=== PATIENT | female | born 1980 | race Caucasian/White ===

== ENCOUNTER 2018-07-29 17:43 | Emergency (ER) | payer BC, SELFPAY ==
[2018-07-29 17:48] VITALS: BP 135/76; PULSE 87; RESP 16; TEMP 36.7; O2SAT 100
--- NOTE | 2018-07-29 17:56 | ED.GENADUL_ITS ---
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 A resume normal routine and activities. Please follow-up with obstetrics this week as planned. Return to the emergency department for any acute concerns in the interim Medical Decision Making 37-year-old female presents from home with concern for feeling a protuberance from her vagina after exercising yesterday. She states it is easily reducible, nonpainful, has not been associated with bleeding. She has had normal urination and defecation, denies fever. She has normal vital signs, on pelvic exam with sterile speculum and gloves patient has a left lateral soft tissue protuberance of her vaginal canal that is easily reducible. heart tones are 150s. Informal bedside ultrasound shows single live intrauterine . Is discussed with Dr. Stewart. 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 Discussed with the patient. 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 She is stable for discharge to home and understands return precautions HPI General Mode of arrival: ambulatory . Date/Time Provider Initiated Documentation: 07/29/18 17:44 . Limitations to Documentation: no limitations . Information obtained by: patient . History of Present Illness 37 year old F presents to the emergency department with the chief complaint of 15wks , feels mass prolapsing from vagina x2days. No pain/discharge, described as mild, and is localized to the pelvis. Patient reports no radiation. Patient started experiencing this day(s) and it has been constant. No relieving factors improve symptom(s), No exacerbating factors reported . 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 Pleasant, well groomed, interactive. HEAD: Normocephalic, atraumatic ENT: Mucous membranes moist, oropharynx unremarkable, External ear exam unremarkable EYES: PERRL, EOMI NECK: Full ROM, no PATRICIA, no menigismus CHEST/RESP: Nontender, clear to auscultation bilateral, no wheeze/rhonchi/rales CARDIOVASCULAR: RRR, no murmur, rub merlin. 2+ Rad pulse bilateral ABDOMEN: Soft, nontender, gravid. +Bowel sounds Pelvic: left lateral soft tissue protuberance of her vaginal canal. No bleedingh or discomfort on bimanual exam. EXT: Full ROM, no edema, no rash Neuro: Grossly normal neurologic exam, conversant, interactive. Psych: Speech fluent, thoughts congruent, affect normal Course Vital Signs Temperature 36.7 C 07/29/18 17:48 Pulse 87 07/29/18 17:48 Respiratory Rate 16 07/29/18 17:48 Blood Pressure 135/76 07/29/18 17:48 Pulse Oximetry 100 07/29/18 17:48 Temperature 36.7 C 07/29/18 17:48 Temperature Source Skin 07/29/18 17:48 Pulse 87 07/29/18 17:48 Respiratory Rate 16 07/29/18 17:48 Respiratory Effort 07/29/18 17:48 Blood Pressure 135/76 07/29/18 17:48 Blood Pressure Position Sitting 07/29/18 17:48 Pulse Oximetry 100 07/29/18 17:48 Oxygen Delivery Method Room Air 07/29/18 17:48 Oxygen Flow Rate 0 07/29/18 17:48 Pain Level 1 07/29/18 17:48
== END 2018-07-29 18:32 | disposition home or self-care (01) ==
LOC: ER 18:36
PROVIDERS: Emergency Provider Emergency Medicine
DX: Q52.4 Other congenital malformations of vagina (principal); Z33.1 Pregnant state, incidental; Z3A.15 15 weeks gestation of pregnancy
CPT/HCPCS: 99284; 99283